=== PATIENT | female | born 1960 | race African-American/Black ===

== ENCOUNTER → 2018-06-12 | Outpatient (CLI) | payer MEDICARE, MEDICAID ==
[~2018-06-12] MED LIST: ALBU17AE26; ARIM1; BENA10TA; DOCU-138; FESO8TAB; FLUO20CA33; GABA-290; HYDR1TAB4; NASONEX; PSEU30TA29; RANI150C12; TRAZ-132
== END | disposition home or self-care (01) ==
LOC: NM 07:29
PROVIDERS: ATTEND Specialist
DX: C50.919 Malignant neoplasm of unspecified site of unspecified female breast (principal); M06.9 Rheumatoid arthritis, unspecified; J45.909 Unspecified asthma, uncomplicated
CPT/HCPCS: 78306; A9503

== ENCOUNTER → 2019-10-03 | Outpatient (CLI) | payer MEDICARE, OTHER ==
[~2019-10-03] MED LIST changes: +ANAS1TAB49; -ARIM1; -TRAZ-132; +TRAZ-213
== END | disposition home or self-care (01) ==
LOC: NM 07:16
PROVIDERS: ATTEND Specialist
DX: C50.919 Malignant neoplasm of unspecified site of unspecified female breast (principal); M16.11 Unilateral primary osteoarthritis, right hip; M17.11 Unilateral primary osteoarthritis, right knee; M47.896 Other spondylosis, lumbar region
CPT/HCPCS: 78306; A9503